=== PATIENT | male | born 1930 | race Caucasian/White ===

== ENCOUNTER → 2017-02-07 | Outpatient (CLI) | payer OTHER ==
[~2017-02-07] MED LIST: ACET325T96 PO; ASPI81TA21 PO; BISA10SU5 PR; CLC100X PO; FERR325T5 PO; FINA5TAB4 PO; FOLI1TAB7 PO; LACT10SO30 PO; LATA0.5S OPB; MOML PO; MUPI1CRE NAE; NITR0.4S UT; NVLGI SC; OXYC1TAB3 PO; POLY335019 PO; RILU1TAB PO; SENN-91 PO; SODIENE PR; TAMS0.4C59 PO; ULT/50 PO
== END | disposition home or self-care (01) ==
LOC: C.LABSPEC 17:18
PROVIDERS: ATTEND Podiatrist Foot & Ankle Surgery
DX: L97.509 Non-pressure chronic ulcer of other part of unspecified foot with unspecified severity (principal)

== ENCOUNTER → 2017-03-05 | Outpatient (CLI) | payer OTHER | END | disposition home or self-care (01) | LOC: C.LABSPEC 17:14 | PROVIDERS: ATTEND Podiatrist Foot & Ankle Surgery | DX: L60.0 Ingrowing nail (principal) ==